=== PATIENT | male | born 1995 | race Caucasian/White ===

== ENCOUNTER 2018-05-26 17:51 | Emergency (ER) | payer OTHER, MEDICAID ==
[2018-05-26] MEDS: IBUPROFEN 600 MG TAB PO (18:17)
== END 2018-05-26 20:00 | disposition home or self-care (01) ==
LOC: FTE 17:51
DX: J02.9 Acute pharyngitis, unspecified (principal); J45.909 Unspecified asthma, uncomplicated
CPT/HCPCS: 87070; 87880; 99283

== ENCOUNTER 2018-06-12 18:09 | Emergency (ER) | payer OTHER ==
[2018-06-12] MEDS: SOD CHLORIDE 0.9% 1,000 ML IV (18:51)
[2018-06-12] MEDS: KETOROLAC 30 MG INJ IV (18:52)
[2018-06-12] MEDS: DEXAMETHASONE 10 MG/ML 1 ML INJ IV (18:52)
[2018-06-12 18:56] LABS: ADD MAN DIFF? NO
[2018-06-12 18:58] LABS: BASOPHILS % 0.3 % (0.0-2.0); EOSINOPHILS % 0.2 % (0.0-7.0); HEMATOCRIT 47.5 % (42.0-52.0); HEMOGLOBIN 16.4 g/dl (14.0-18.0); LYMPHOCYTES # 1.1 10^3/ul (0.8-2.9); LYMPHOCYTES % 12.6 % (15.0-51.0); MEAN CORPUSCULAR HEMOGLOBIN 30.1 pg (29.0-33.0); MEAN CORPUSCULAR HGB CONC 34.5 g/dl (32.0-37.0); MEAN CORPUSCULAR VOLUME 87.3 fl (82.0-101.0); MEAN PLATELET VOLUME 10.7 fl (7.4-10.4); MONOCYTE # 0.5 10^3/ul (0.3-0.9); MONOCYTES % 5.8 % (0.0-11.0); NEUTROPHIL # 7.3 10^3/ul (1.6-7.5); NEUTROPHILS % 80.9 % (39.0-77.0); PLATELET COUNT 167 10^3/UL (140-415); RED BLOOD COUNT 5.44 10^6/ul (4.70-6.10); RED CELL DISTRIBUTION WIDTH 11.3 % (11.5-14.5)
[2018-06-12 19:17] LABS: ALANINE AMINOTRANSFERASE 14 IU/L (13-69); ALBUMIN 4.1 g/dl (3.3-4.9); ALKALINE PHOSPHATASE 115 IU/L (42-121); ANION GAP 16 (8-16); ASPARTATE AMINO TRANSFERASE 19 IU/L (15-46); BILIRUBIN,INDIRECT 0.8 mg/dl (0-1.1); BILIRUBIN,TOTAL 0.8 mg/dl (0.2-1.3); BLOOD UREA NITROGEN 13 mg/dl (7-20); CALCIUM 9.8 mg/dl (8.4-10.2); CARBON DIOXIDE 25 mmol/L (21-31); CHLORIDE 103 mmol/L (97-110); CREATININE 0.96 mg/dl (0.61-1.24); GLUCOSE 96 mg/dl (70-220); POTASSIUM 3.8 mmol/L (3.5-5.1); SODIUM 140 mmol/L (135-144); TOTAL PROTEIN 8.2 g/dl (6.1-8.1)
[2018-06-12] MEDS: IOHEXOL 300MG/ML 150 ML BTL (20:38)
[2018-06-12] MEDS: SOD CHLORIDE 0.9% 100 ML (20:38)
== END 2018-06-12 22:51 | disposition home or self-care (01) ==
LOC: FTE 18:09
DX: J02.9 Acute pharyngitis, unspecified (principal); J45.909 Unspecified asthma, uncomplicated
CPT/HCPCS: 70491; 80053; 85025; 96374; 96375; 99285-25

== ENCOUNTER 2018-07-28 18:13 | Emergency (ER) | payer OTHER ==
[2018-07-28] MEDS: KETOROLAC 30 MG INJ IV (19:43)
[2018-07-28] MEDS: SOD CHLORIDE 0.9% 1,000 ML IV (19:43)
[2018-07-28] MEDS: LIDOCAINE 1%/EPI 30 ML INJ INJ (19:44)
[2018-07-28] MEDS: CLINDAMYCIN 600 MG/D5W (PMX) 50 ML IVPB (21:21)
== END 2018-07-28 22:42 | disposition home or self-care (01) ==
LOC: FTE 18:13
DX: J36 Peritonsillar abscess (principal); J45.909 Unspecified asthma, uncomplicated
CPT/HCPCS: 42700; 96361; 96365; 96375; 99284-25